=== PATIENT | male | born 1995 | race Hispanic/Latino ===

== ENCOUNTER 2017-02-03 13:34 | Emergency (ER) | payer OTHER ==
[2017-02-03 13:35] VITALS: BMI 23.1
[2017-02-03 14:11] VITALS: BP 131/79; RESP 18; TEMP 99.3; O2SAT 98
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
[2017-02-03 14:51] VITALS: PULSE 97
== END 2017-02-03 14:52 | disposition home or self-care (01) ==
LOC: ED 13:34
DX: Z48.02 Encounter for removal of sutures (principal); Z51.89 Encounter for other specified aftercare; F17.210 Nicotine dependence, cigarettes, uncomplicated